=== PATIENT | male | born 1955 | race Caucasian/White ===

== ENCOUNTER 2023-01-04 08:00 | Outpatient (CLI) | payer MEDICARE, SELFPAY ==
--- NOTE | ~2023-01-04 | US_ITS ---
EXAMINATION:US venous doppler LE BI INDICATION:Left leg pain TECHNIQUE: Multiple grayscale, color flow and Doppler images of the right and left lower extremity de ep venous systems were obtained and reviewed. COMPARISON:No prior studies for comparison. FINDINGS: The common femoral, superficial femoral and popliteal veins demonstrate normal respiratory variation, augmentation and compressibility. Color flow is also seen within the posterior tibial, pe roneal, greater saphenous and profunda veins. IMPRESSION: 1: No lower extremity deep venous thrombosis. Reviewed, dictated and finalized at location L. ISE WINDER
--- NOTE | ~2023-01-04 | US_ITS ---
EXAMINATION: US art doppler w press LE DATE: 01/04/2023 10:08 CHIP APPLYING MACHINE TENDER INDICATION: Left leg pain. TECHNIQUE: Segmental pressures and plethysmographic and Doppler waveforms of the brachial and lower e xtremity arteries were obtained. COMPARISON: None. FINDINGS: Right and left brachial artery pressures of 127 mm Hg and 121 mm Hg, respectively, are concordant (no rmal difference <= 30 mmHg). The right high-thigh pressure index is 1.13 The right ankle-brachial index (HEBER) is 1.24. The right g reat toe-brachial index (TBI) is 0.5 (normal >= 0.60). The right lower extremity segmental pressure g radients are normal (normal gradients <= 20-30 mmHg between adjacent levels on the same leg or the sa me levels on the two legs). Arterial Doppler waveforms are biphasic and triphasic.. The left high-thigh pressure index is 1.18. The left HEBER is 1.16. The left TBI is 0.65. The left lowe r extremity segmental pressure gradients are normal. Arterial Doppler waveforms are biphasic. IMPRESSION: 1. Normal right ankle-brachial index. Mildly decreased right toe brachial index consistent with perip heral arterial disease. 2: Normal left lower extremity arterial Doppler. Reviewed, dictated and finalized at location L. APPLYING MACHINE TENDER IMPRESSION: 1. Normal right ankle-brachial index. Mildly decreased right toe brachial index consistent with peripheral arterial disease. 2: Normal left lower extremity arterial Doppler.
== END 2023-01-04 08:01 | disposition home or self-care (01) ==
PROVIDERS: PCP Family Medicine; Visit Provider Nurse Practitioner Family
DX: I73.9 Peripheral vascular disease, unspecified (principal); M79.605 Pain in left leg
CPT/HCPCS: 93923; 93970

== ENCOUNTER 2023-02-20 09:32 | Outpatient (CLI) | payer MEDICARE, SELFPAY ==
[2023-02-20 10:08] LABS: Basophils Percent Auto 0.5 % (0.2-1.2); Eosinophils Absolute Auto 0.1 K/mm3 (0-0.3); Eosinophils Percent Auto 1.8 % (0-4.4); Hematocrit 48.3 % (42.0-52.0); Hemoglobin 16.2 g/dL (14.0-18.0); Immature Granulocyte Absolute 0.01 K/mm3 (0.00-0.031); Immature Granulocyte Percent A 0.3 % (0-0.5); Lymphocytes Percent Auto 17.9 % (18.3-44.2); Mean Corpuscular HGB Conc 33.5 g/dl (32-36); Mean Corpuscular Hemoglobin 31.8 pg (26-34); Mean Corpuscular Volume 94.7 fl (80-100); Mean Platelet Volume 10.1 fl (7.4-10.4); Monocytes Absolute Auto 0.3 K/mm3 (0.1-0.6); Monocytes Percent Auto 8.2 % (2.6-8.5); Neutrophils Absolute Auto 2.8 K/mm3 (1.3-6.7); Neutrophils Percent Auto 71.3 % (45.5-73.1); Platelet Count Result 174 k/mm3 (150-375); Red Cell Distribution Width 12.8 % (11.5-14.5); White Blood Count 3.9 K/mm3 (4.5-10.0)
[2023-02-20 10:33] LABS: Alanine Aminotransferase 27 U/L (6-50); Albumin Level 4.3 g/dL (3.5-5.1); Alkaline Phosphatase 56 U/L (38-126); Anion Gap 5 mmol/L (8-16); Aspartate Amino Transferase 25 U/L (17-59); Blood Urea Nitrogen 16 mg/dL (9-20); Calcium 9.2 mg/dL (8.4-10.2); Carbon Dioxide 28 mmol/L (22-30); Chloride 104 mmol/L (98-107); Estimated Glomerular Filt Rate > 60; Glucose 98 mg/dL (65-110); Potassium 4.5 mmol/L (3.4-5.0); Sodium 137 mmol/L (137-145)
[2023-02-20 10:55] LABS: Hemoglobin A1C 5.3 % (<5.7)
== END 2023-02-20 09:33 | disposition home or self-care (01) ==
LOC: ANHLAB 09:36
PROVIDERS: PCP Family Medicine; Visit Provider Internal Medicine
DX: I48.0 Paroxysmal atrial fibrillation (principal); R79.89 Other specified abnormal findings of blood chemistry
CPT/HCPCS: 36415; 80053; 83036; 84443; 85025

== ENCOUNTER 2023-06-11 12:16 | Emergency (ER) | payer MEDICARE, SELFPAY ==
[2023-06-11 12:20] VITALS: BP 141/74; PULSE 84; RESP 16; TEMP 36.8; O2SAT 97
[2023-06-11] MEDS: OXYMETAZOLINE HCL 0.05% NAS 15 ML BTL (*BKC) 1 SPRAY NASAL (13:43)
[2023-06-11 13:45] VITALS: BP 143/78; PULSE 71; RESP 14; O2SAT 99
--- NOTE | 2023-06-11 14:01 | ED.EPISTAXIS ---
HPI - Epistaxis General Chief complaint: Epistaxis Stated complaint: NOSEBLEED, ON BLOOD THINNERS Time Seen by Provider: 06/11/23 13:19 History of Present Illness HPI Narrative: Patient is a 67-year-old male who presents ER with epistaxis. Had some yesterday lasted for short amount of time but then today began bleeding out of his right nostril and then started coming on the left side. He tried applying pressure but would not stop. He did not take his morning Eliquis due to the bleeding and came here. It started right after taking off his CPAP which she does have humidified air going through. He reports history of recurrent epistaxis in the past but never 1 that persisted like this. Currently patient has a clamp on his nose and is not bleeding Related Data Allergies Allergy/AdvReac Type Severity Reaction Status Date / Time No Known Allergies Allergy Mild Verified 06/11/23 12:17 Review of Systems ENT: Reports epistaxis, Denies nasal congestion and Denies sore throat Cardiovascular: Cardiovascular: Denies chest pain, Denies rapid heart rate and Denies radiating jaw, neck or arm pain Respiratory: Respiratory: Denies cough and Denies dyspnea PMFSH Past Medical History Medical History Abnormal WBC count Bilateral impacted cerumen BMI 24.0-24.9, adult Dietary counseling and surveillance (10/25/15) Elevated bilirubin Elevated cholesterol Elevated glucose Elevated testosterone level Encounter for screening for malignant neoplasm of prostate Gastrointestinal hemorrhage, unspecified H/O nonmelanoma skin cancer Insomnia, unspecified Mixed hyperlipidemia Obstructive sleep apnea (adult) (pediatric) Screening for thyroid disorder Urinary hesitancy Surgical History Surgical History H/O colonoscopy Family History Family History Grandparent Cerebrovascular accident Diabetes mellitus Mother Family history of diabetes mellitus in first degree relative Family history of coronary artery disease Diabetes mellitus Father Family history of coronary artery disease Skin cancer History of quadruple bypass Sibling Prescription drug abuse Skin cancer Sibling Carcinoma of colon Heart disease Lung cancer Other Hypertension Social History Social History Smoking status: Former smoker Tobacco type: cigarettes Second hand tobacco smoke exposure: Yes Smoking end date: 05/11/98 Alcohol intake: former Substance use: never Substance use type: does not use Lack of Transportation: No Lack of Food: Never True Current Housing: I Have Housing Concerned About Future Housing: No Difficulty Paying Gas/Electric Bills: No Difficulty Paying for Meds: No Currently Unemployed: No Education: Trade/Vocational Certificate Difficulty w/ Childcare or Family Care: No Living arrangements: alone Occupation/Education: retired 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 HEAD: Normocephalic, atraumatic. ENT: Mucous membranes moist. Stigmata of bleeding right naris with clot at Kiesselbach's plexus. NECK: Supple. CHEST: Clear to auscultation. No respiratory distress. HEART: Regular rate and rhythm. Normal peripheral pulses. EXTREMITIES: Normal range of motion. No edema. NEURO: Alert and oriented x3. PSYCH: Normal mood and affect. Course Course Emergency Course: Oxymetazoline applied. No additional bleeding. Recommend follow-up with ENT and gave bleeding precautions and also discussed ways to prevent additional bleeding. Vital Signs Vital signs
== END 2023-06-11 14:45 | disposition home or self-care (01) ==
PROVIDERS: Emergency Provider Emergency Medicine; PCP Family Medicine
DX: R04.0 Epistaxis (principal); E78.2 Mixed hyperlipidemia; G47.33 Obstructive sleep apnea (adult) (pediatric); Z85.828 Personal history of other malignant neoplasm of skin; Z87.891 Personal history of nicotine dependence
CPT/HCPCS: 99283; A9270

== ENCOUNTER 2023-06-25 14:22 | Outpatient (CLI) | payer MEDICARE, SELFPAY ==
--- NOTE | ~2023-06-25 | CT_ITS ---
EXAMINATION: CT sinus wo con DATE: 06/25/2023 15:00 INDICATION: Epistaxis. TECHNIQUE: Computed tomography (CT) of the paranasal sinuses was performed without intravenous contra st. Iterative reconstruction technique was employed. The dose-length product was 329.94 mGy-cm. COMPARISON: None FINDINGS: There is mild mucosal thickening in the frontal recesses. There is mucosal thickening in th e bilateral ethmoid sinuses, worst in the right anterior ethmoid sinuses. There is near complete opac ification of right maxillary sinus. There is mild mucosal thickening in left maxillary sinus. The sph enoid sinuses are clear. The nasal septum is at the midline. The right ostiomeatal unit is occluded a t the hiatus semilunaris and infundibulum. Left ostiomeatal unit is patent. There is cerumen in right external auditory canal. IMPRESSION: 1. Mucosal thickening in the paranasal sinuses with occlusion of right ostiomeatal unit. Reviewed, dictated and finalized at location A. IMPRESSION: 1. Mucosal thickening in the paranasal sinuses with occlusion of right ostiomea nikhil unit.
== END 2023-06-25 14:23 | disposition home or self-care (01) ==
PROVIDERS: PCP Family Medicine; Visit Provider Family Medicine
DX: R04.0 Epistaxis (principal)
CPT/HCPCS: 70486

== ENCOUNTER 2024-03-11 12:27 | Outpatient (CLI) | payer MEDICARE, SELFPAY ==
--- NOTE | ~2024-03-11 | CT_ITS ---
CT Scan of the Chest without Contrast: Clinical Indication: Lung cancer screening, personal history of nicotine dependence Technique: Contiguous sections were acquired throughout the chest without intravenous contrast. Dose reduction technique was used on this scan by utilizing automated exposure control and iterative recon struction technique. The dose-length product (DLP) was 129.65 mGy-cm. Findings: There is no evidence of any significant mediastinal, hilar or axillary lymphadenopathy. The mediastin al soft tissues appear normal. There is no evidence of pleural or pericardial effusion. 4 mm right middle lobe pulmonary nodule present (axial image 83). Images through the upper abdomen reveal no abnormalities. Impression: Lung RADS 2: Benign appearance. 12 month follow-up screening CT advised. Reviewed, dictated and finalized at location . Impression: Lung RADS 2: Benign appearance. 12 month follow-up screening CT advised.
== END 2024-03-11 12:28 | disposition home or self-care (01) ==
PROVIDERS: PCP Family Medicine; Visit Provider Family Medicine
DX: Z12.2 Encounter for screening for malignant neoplasm of respiratory organs (principal); Z87.891 Personal history of nicotine dependence
CPT/HCPCS: 71271

== ENCOUNTER 2024-03-25 02:16 | Day surgery (SDC) | payer MEDICARE, SELFPAY ==
[2024-03-10 09:07] VITALS: BMI 24.4
[2024-03-25 11:04] VITALS: BP 138/72; PULSE 80; RESP 20; TEMP 36.2; O2SAT 100; BMI 23.2
[2024-03-25] MEDS: LACTATED RINGERS 1,000 ML 150 ML IV CONT (11:06)
--- NOTE | 2024-03-25 11:49 | WPDANESEPPF ---
Anes - Initial Pre Proc Eval Procedure: Operation Date: 03/25/24 11:30 Proposed Procedures p Screening Colonoscopy - Chester Jaramillo DO Date/Time: 03/25/24 11:49 Surgeon: Chester Jaramillo DO Pre Op Diagnosis: Screening for malignant neoplasm of colon Patient Data Age: 68 Gender: M Height: 1.85 m Weight: 80 kg Last Vital Signs Temp 97.2 F L 03/25/24 11:04 Pulse 80 03/25/24 11:04 Resp 20 03/25/24 11:04 BP 138/72 03/25/24 11:04 Pulse Ox 100 03/25/24 11:04 O2 Del Method Room Air 03/25/24 11:04 Allergies Allergy/AdvReac Type Severity Reaction Status Date / Time No Known Allergies Allergy Mild Verified 03/25/24 11:00 Home Medications Medication Instructions Recorded Confirmed Type sildenafil 25 mg tablet 25 mg PO DAILY PRN sexual activity 01/09/24 03/25/24 Rx #30 tabs clonazepam 1 mg tablet 1 mg PO DAILY #60 tabs 03/11/24 03/25/24 Rx Patient hx anesthesia problems: none Family hx anesthesia problems: none Results Review: All pre-operative results and documents have been reviewed as part of the pre-operative evaluation. [facility] Past Medical History Medical History (Updated 02/29/24 @ 10:59 by Crescencio Araiza MD) Abnormal WBC count Bilateral impacted cerumen BMI 24.0-24.9, adult Dietary counseling and surveillance (10/25/15) Elevated bilirubin Elevated cholesterol Elevated glucose Elevated testosterone level Encounter for screening for malignant neoplasm of prostate Former smoker Gastrointestinal hemorrhage, unspecified H/O nonmelanoma skin cancer Insomnia, unspecified Mixed hyperlipidemia Obstructive sleep apnea (adult) (pediatric) Screening for thyroid disorder Urinary hesitancy Surgical History Surgical History H/O cardiac radiofrequency ablation H/O colonoscopy Family History Family History Grandparent Cerebrovascular accident Diabetes mellitus Mother Family history of diabetes mellitus in first degree relative Family history of coronary artery disease Diabetes mellitus Father Family history of coronary artery disease Skin cancer History of quadruple bypass Sibling Prescription drug abuse Skin cancer Sibling Carcinoma of colon Heart disease Lung cancer Other Hypertension Social History Social History (Updated 03/11/24 @ 17:42 by Crescencio Araiza MD) Smoking packs per day: 1 Smoking cigarettes per day: 20.0 Years smoked: 20 Smoking pack-years: 20.00 Smoking status: Former smoker Tobacco type: cigarettes Second hand tobacco smoke exposure: Yes Smoking end date: 05/11/98 Alcohol intake: former Substance use: never Substance use type: does not use Do You Feel Safe in your Home?: Yes Lack of Transportation: No Lack of Food: Never True Current Housing: I Have Housing Concerned About Future Housing: No Difficulty Paying Gas/Electric Bills: No Difficulty Paying for Meds: No Currently Unemployed: No Education: Trade/Vocational Certificate Difficulty w/ Childcare or Family Care: No Living arrangements: alone Occupation/Education: retired 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 Informed Consent: The patient's anes
--- NOTE | 2024-03-25 12:47 | PM.IMHP ---
H&P: HPI History of Present Illness Date/Time: 03/25/24 12:47 Chief Complaint: Family history of colon cancer Narrative: this is a 68-year-old man who presents for colonoscopy. His last colonoscopy was about 5 years ago. He has a family history of colon cancer. His last colonoscopy did show 1 small polyp he thinks. He denies any hematochezia or melena. Review of Systems Review of Systems: All systems reviewed & are unremarkable except as noted in HPI and below Constitutional: Constitutional: Denies chills, Denies fever(s), Denies headache(s) and Denies weight loss Eyes: Eyes: Denies change in vision ENT: Denies dizziness, Denies headache(s), Denies neck mass and Denies throat swelling Cardiovascular: Cardiovascular: Denies chest pain, Denies lightheadedness and Denies dyspnea Respiratory: Respiratory: Denies cough, Denies dyspnea and Denies wheezing Gastrointestinal: Gastrointestinal: Denies abdominal pain, Denies change in bowel habits, Denies nausea and Denies vomiting Genitourinary: Genitourinary: Denies hematuria and Denies dysuria Musculoskeletal: Musculoskeletal: Reports as per HPI Integumentary/Breasts: Skin/Breast: Reports as per HPI Neurologic: Denies dizziness and Denies headache(s) Allergic/Immunologic: Allergic/Immunologic: Denies throat swelling and Denies wheezing [facility] Past Medical History Medical History (Updated 03/25/24 @ 12:48 by Chester Jaramillo DO) Abnormal WBC count Bilateral impacted cerumen BMI 24.0-24.9, adult Dietary counseling and surveillance (10/25/15) Elevated bilirubin Elevated cholesterol Elevated glucose Elevated testosterone level Encounter for screening for malignant neoplasm of prostate Former smoker Gastrointestinal hemorrhage, unspecified H/O nonmelanoma skin cancer Insomnia, unspecified Mixed hyperlipidemia Obstructive sleep apnea (adult) (pediatric) Screening for thyroid disorder Urinary hesitancy Surgical History Surgical History H/O cardiac radiofrequency ablation H/O colonoscopy Family History Family History Grandparent Cerebrovascular accident Diabetes mellitus Mother Family history of diabetes mellitus in first degree relative Family history of coronary artery disease Diabetes mellitus Father Family history of coronary artery disease Skin cancer History of quadruple bypass Sibling Prescription drug abuse Skin cancer Sibling Carcinoma of colon Heart disease Lung cancer Other Hypertension Social History Social History (Updated 03/11/24 @ 17:42 by Crescencio Araiza MD) Smoking packs per day: 1 Smoking cigarettes per day: 20.0 Years smoked: 20 Smoking pack-years: 20.00 Smoking status: Former smoker Tobacco type: cigarettes Second hand tobacco smoke exposure: Yes Smoking end date: 05/11/98 Alcohol intake: former Substance use: never Substance use type: does not use Do You Feel Safe in your Home?: Yes Lack of Transportation: No Lack of Food: Never True Current Housing: I Have Housing Concerned About Future Housing: No Difficulty Paying Gas/Electric Bills: No Difficulty Paying for Meds: No Currently Unemployed: No Education: Trade/Vocational Certificate Difficulty w/ Childcare or Family Care: No Living arrangements: alone Occupation/Education: retired 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
[2024-03-25 13:23] VITALS: BP 111/69; PULSE 74; RESP 21; O2SAT 100
[2024-03-25 13:30] VITALS: BP 126/84; PULSE 70; RESP 24; O2SAT 100
[2024-03-25 13:40] VITALS: BP 143/84; PULSE 69; RESP 20; O2SAT 100
== END 2024-03-25 13:51 | disposition home or self-care (01) ==
PROVIDERS: PCP Family Medicine; Visit Provider Surgery
PROC: 0DJD8ZZ Inspection of Lower Intestinal Tract, Via Natural or Artificial Opening Endoscopic (ICD-10-PCS; CPT 45378; principal; 2024-03-25 11:30)
DX: Z12.11 Encounter for screening for malignant neoplasm of colon (principal); Z80.0 Family history of malignant neoplasm of digestive organs; Z87.891 Personal history of nicotine dependence
CPT/HCPCS: G0105; J2704; J7120

== ENCOUNTER 2024-04-15 10:05 | Outpatient (CLI) | payer MEDICARE, SELFPAY ==
--- NOTE | ~2024-04-15 | XR_ITS ---
EXAMINATION: XR abdomen/kub 1V DATE: 04/15/2024 10:20 INDICATION: Unspecified abdominal pain. TECHNIQUE: A supine view of the abdomen on 2 radiographs was obtained. COMPARISON: CT abdomen and pelvis 04/15/2024 FINDINGS: There are no dilated loops of bowel. There is a small volume of stool in the colon. There a re phleboliths in the pelvis. IMPRESSION: 1. No visible urolithiasis. Reviewed, dictated and finalized at location A. IMPRESSION: 1. No visible urolithiasis.
--- NOTE | ~2024-04-15 | CT_ITS ---
Non-contrast CT scan of the Abdomen and Pelvis Clinical indication: Abdominal pain Technique: 2.5 mm axial scans were obtained through the abdomen and pelvis without intravenous or or al contrast. Dose reduction technique was used on this scan by utilizing automated exposure control a nd iterative reconstruction technique. The dose-length product (DLP) was 617.17 mGy-cm. Findings: Images through the lung bases reveal no abnormalities. There is a 6 x 4 mm ovoid stone at the proximal right ureter (axial image 62), mild to moderate right hydroureteronephrosis to this level. There is mild left hydroureteronephrosis, but no left ureteral stones seen on the current exam. There is a 7 mm round nonobstructing left renal stone. The liver, spleen, pancreas, gallbladder, and adrenals appear normal. There are atherosclerotic calci fications of the aorta. There is no evidence of bowel obstruction. Images through the pelvis were performed. There is no evidence of ascites or lymphadenopathy. 3 mm ur inary bladder stone present. Prostate gland enlarged. Impression: 6 x 4 mm proximal right ureteral stone with mild to moderate hydroureteronephrosis to this level. Mild left hydroureteronephrosis with no left ureteral stones seen currently. There is a 3 mm urinary bladder stone, possibly recently passed from the left side. Correlate clinically. Additional 7 mm nonobstructing left renal stone. Reviewed, dictated and finalized at [facility]. Impression: 6 x 4 mm proximal right ureteral stone with mild to moderate hydroureteronephro sis to this level. Mild left hydroureteronephrosis with no left ureteral stones seen currently. Th ere is a 3 mm urinary bladder stone, possibly recently passed from the left jesús e. Correlate clinically. Additional 7 mm nonobstructing left renal stone.
== END 2024-04-15 10:06 ==
LOC: MICIMG 10:06
PROVIDERS: PCP Family Medicine; Visit Provider Nurse Practitioner Adult Health
DX: N13.2 Hydronephrosis with renal and ureteral calculous obstruction (principal)
CPT/HCPCS: 74018; 74176

== ENCOUNTER 2025-02-11 09:58 | Outpatient (CLI) | payer MEDICARE, SELFPAY ==
--- NOTE | ~2025-02-11 | XR_ITS ---
Left foot Technique: AP, oblique, and lateral views were obtained. Clinical History: Anesthesia of skin Findings: No acute fracture or dislocation is seen. Osseous alignment is anatomic. Joint spaces are p reserved without erosive or degenerative change. Soft tissues are unremarkable. Impression: Unremarkable left foot radiographs. Reviewed, dictated and finalized at location . Impression: Unremarkable left foot radiographs.
--- NOTE | ~2025-02-11 | XR_ITS ---
Cervical Spine: AP, lateral, open-mouth views Clinical History: Pain Findings: The normal lordotic curve is maintained. No fracture or subluxation seen. There is advanced degenerative disc narrowing at C6-C7. There is moderate facet arthropathy, particularly at the upper to mid cervical spine.. Pre-vertebral soft tissues are unremarkable. Impression: Degenerative spondylosis, moderate in degree, as detailed above. Reviewed, dictated and finalized at location M. Impression: Degenerative spondylosis, moderate in degree, as detailed above.
--- OUTSIDE RECORDS SUMMARY | 2025-02-11 11:34 | XMS_ITS | Clinical Summary ---
Author Organization [facility] Address [address] [place] [address] Care Team Providers Care Telephone Operator Chief Name Role Phone Crescencio Araiza MD Primary Care Provider [phone] Source Comments [facility],non-owned Affiliates and Associated Physician Practices is amultiple site organization consisting of ambulatory clinics and hospital sitesin [place], [place], [place] and [place]. This disclosure is being madepursuant to the Care Everywhere program and may not contain all information available regarding this patient. Last updated 18.[facility] [employer] Social History Tobacco Use Types Packs/Day Years Used Date Smoking Tobacco: Never Assessed Sex and Gender Information Value Date Recorded Sex Assigned at Not on file Gender Identity Not on file Sexual Orientation Not on file Plan of Treatment Health Maintenance Due Date Last Done Comments COLOGUARD (AGES 45-75) - COL ON CA SCREENING 1957 COLON MONITORING 1957 COLONOSCOPY - COLON CA SCREENING 1957 CT COLONOGRAPHY - COLON CA SCREENING 1957 Colorectal Cancer Screening 1957 FIT - COLON CA SCREENING 1957 FLEX SIG - COLON CA SCREENING 1957 LIPID TESTING 1957 HEPATITIS C SCREENING 10/23/1975 DTAP/TDAP/TD VACCINES (1 - Tdap) 1976 PNEUMOCOCCAL VACCINE 50+ (1 of 1 - PCV) 2007 ZOSTER VACCINE (1 of 2) 2007 COVID-19 VACCINE ( - 2023-2 5 season) 2024 INFLUENZA VACCINE (#1) 2024 DEPRESSION SCREENING 11/12/2024 Respiratory Syncytial Virus (RSV) Vaccine Pt: or over 60 yrs (1 - 1-dose 75+ series) 2032 HEPATITIS B VACCINE Aged Out No longe r eligible based on patient's age to complete this topic HIB VACCINE Aged Out No longer eligi ble based on patient's age to complete this topic HPV VACCINE Aged Out No longer eligi ble based on patient's age to complete this topic MENINGOCOCCAL (Group B) VACC INE SHARED DECISION-MAKING Aged Out No longer eligibl e based on patient's age to complete this topic MENINGOCOCCAL GROUPS A/C/Y/W VACCINE Aged Out No longer eligible b ased on patient's age to complete this topic Care Teams Telephone Operator Chief Relationship Specialty Start Date End Date Crescencio Araiza MD [address] [place] [address] PCP - General 04/10/19
--- OUTSIDE RECORDS SUMMARY | 2025-02-11 11:34 | XMS_ITS | Encounter Summary ---
Author Organization [facility] Address [address] [facility] [place] [address] Care Team Providers Care Retail Sales Associate Name Role Phone Crescencio Araiza MD Primary Care Provider [phone] Encounter Details Date Type Department Care Team (Late st Contact Info) Description 12/03/2019 Lab Requisition [facility] DermPath Lab [address] [facility] [place] [phone] Estela Urbina MD [address] [facility] [address] [place] [address] Social History Tobacco Use Types Packs/Day Years Used Date Smoking Tobacco: Never Assessed Sex and Gender Information Value Date Recorded Sex Assigned at Not on file Gender Identity Not on file Sexual Orientation Not on file documented as of this encounter Plan of Treatment Not on file documented as of this encounter Procedures Procedure Name Priority Date/Time Associated Diagnosis Comments DERMATOPATHOLOGY Routine 12/02/2019 12:0 0 AM MUD ANALYSIS WELL LOGGING OPERATOR documented in this encounter Results * DERMATOPATHOLOGY (12/02/2019 12:00 AM MUD ANALYSIS WELL LOGGING OPERATOR) Case Report Dermatopathology Report Case: [id number] Authorizing Provider: Estela Urbina MD Collected: 12/02/2019 12:00 AM Ordering Location: [facility] DermPath Lab Received: 12/03/2019 07:12 AM Pathologist: Sharifa Luna MD Specimen: Skin, left neck 0 4:11 PM MUD ANALYSIS WELL LOGGING OPERATOR DERMATOPATHOLOGY LABORATORY Final Diagnosis Specimen A. 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 0 4:11 PM [facility] DERMATOPATHOLOGY LABORATORY Gross Description Specimen A: Received is one formalin filled container labeled with the patient's name and designated left neck. The specimen consists of a non-oriented ellipse of skin measuring [id number]. The epidermal surface consists of a centrally located 7x5mm previous biopsy site. The margin is inked green. The 12 o'clock and 6 o'clock tips are submitted in cassette 1. The remainder of the ellipse is serially sectioned and submitted in cassettes 2-4. Jar 0. 0 4:11 PM [facility] DERMATOPATHOLOGY LABORATORY Microscopic Description Specimen A. SKIN, left neck: The epidermis shows parakeratosis, full thickness disorderly maturation of keratinocytes, mitoses at different levels, and dyskeratotic cells. This lesion is not present at the margin of the specimen. There are fibroblasts and collagen bundles oriented parallel to the skin surface with elongated blood vessels, some of which are oriented perpendicular to the skin surface. 0 4:11 PM [facility] DERMATOPATHOLOGY LABORATORY Disclaimer An external and internal positive and negative controls are appropriate for the histochemical, immunohistochemical and immunofluorescence stain(s) in this case (if any), except where stated explicitly. The performance characteristics of the stain(s) cited in this report were developed and its performance characteristic determined by the Dermatopathology Laboratory at [facility], directed by Dr. Eliza Herbert. These tests need not be, and therefore are not, approved by the [place] Food and Drug Administration. The tests are used for clinical purposes. Billing Codes Specimen Charges Stain Charges 90764 1 0 4:11 PM [facility] DERMATOPATHOLOGY LABORATORY Embedded Images 0 4:11 PM [facility] DERMATOPATHOLOGY LABORATORY Pathology/Cytolog y TISSUE SPECIMEN FROM SKIN / Unknown 12/02/2019 12/03/2019 7:12 AM [facility] Estela Urbina MD LAB - PATHOLOGY/CYT OLOGY ORDERABLES DERMATOPATHOLOGY LABORATORY [facility] - Department of Dermatology [address] [place] [address] [address] [phone] documented in this encounter Visit Diagnoses Not on filedocumented in this encounter Care Teams Retail Sales Associate Relationship Specialty Start Date End Date Crescenico Araiza MD [address] [place] [address] PCP - General 04/10/19 documented as of this encounter
--- OUTSIDE RECORDS SUMMARY | 2025-02-11 11:34 | XMS_ITS | Encounter Summary ---
Author Organization [facility] Address [address] [facility] [place] [address] Care Team Providers Care Residential Case Manager Name Role Phone Crescencio Araiza MD Primary Care Provider Encounter Details Date Type Department Care Team (Late st Contact Info) Description 09/10/2019 Lab Requisition [facility] DermPath Lab [address] [facility] [facility] [place] [address] Estela Urbina MD [address] [facility] [address] [place] [address] Social History Tobacco Use Types Packs/Day Years Used Date Smoking Tobacco: Never Assessed Sex and Gender Information Value Date Recorded Sex Assigned at Not on file Gender Identity Not on file Sexual Orientation Not on file documented as of this encounter Plan of Treatment Not on file documented as of this encounter Procedures Procedure Name Priority Date/Time Associated Diagnosis Comments DERMATOPATHOLOGY Routine 09/09/2019 12:0 0 AM CDT documented in this encounter Results * DERMATOPATHOLOGY (09/09/2019 12:00 AM CDT) Case Report Dermatopathology Report Case: [id number] Authorizing Provider: Estela Urbina MD Collected: 09/09/2019 12:00 AM Ordering Location: [facility] DermPath Lab Received: 09/10/2019 06:52 AM Pathologist: Karen Herbert MD Specimen: Skin, left neck 9 2:02 PM CDT DERMATOPATHOLOGY LABORATORY Final Diagnosis Specimen A. 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 2:02 PM CDT DERMATOPATHOLOGY LABORATORY Gross Description Specimen A: Received is one formalin filled container labeled with the patient's name and designated left neck. The specimen consists of a shave measuring [id number]. Jar 0. 2:02 PM CDT DERMATOPATHOLOGY LABORATORY Microscopic Description Specimen A. SKIN, left neck: The epidermis shows parakeratosis, full thickness disorderly maturation of keratinocytes, mitoses at different levels, and dyskeratotic cells. 2:02 PM CDT DERMATOPATHOLOGY LABORATORY Disclaimer An external and internal positive and negative controls are appropriate for the histochemical, immunohistochemical and immunofluorescence stain(s) in this case (if any), except where stated explicitly. The performance characteristics of the stain(s) cited in this report were developed and its performance characteristic determined by the Dermatopathology Laboratory at [facility], directed by Dr. Eliza Herbert. These tests need not be, and therefore are not, approved by the [place] Food and Drug Administration. The tests are used for clinical purposes. Billing Codes Specimen Charges Stain Charges 04832 1 2:02 PM CDT DERMATOPATHOLOGY LABORATORY Embedded Images 2:02 PM CDT DERMATOPATHOLOGY LABORATORY Pathology/Cytolog y TISSUE SPECIMEN FROM SKIN / Unknown 09/09/2019 09/10/2019 6:52 AM CDT Estela Urbina MD LAB - PATHOLOGY/CYT OLOGY ORDERABLES DERMATOPATHOLOGY LABORATORY [facility] - Department of Dermatology [address] [place] [address], 5th [place] [address], [facility] [phone] documented in this encounter Visit Diagnoses Not on filedocumented in this encounter Care Teams Residential Case Manager Relationship Specialty Start Date End Date Crescencio Araiza MD [address] [place] [address] PCP - General 04/10/19 documented as of this encounter
--- OUTSIDE RECORDS SUMMARY | 2025-02-11 11:34 | XMS_ITS | Encounter Summary ---
Author Organization [facility] Address [address] [place] [address] Phone Care Team Providers Care Maintenance Plumber Name Role Phone Crescencio Araiza MD Primary Care Provider [phone] Encounter Details Date Type Department Care Team (Late st Contact Info) Description 10/02/2023 Telephone [facility] Cardiology [address] [facility] Advanced Medicine 8th [place] [address] [place] [address] Humberto Lopez MD [address] [facility] [address] [place], [place] [phone] Social History Tobacco Use Types Packs/Day Years Used Date Smoking Tobacco: Former Cigarettes 1 989 - 1998 Passive Smoke Exposure: Past Smokeless Tobacco: Never AUDIT-C Answer Date Recorded Q1: How often do you have a drink containing alcohol? Never 07/13/2023 Q2: How many drinks containi ng alcohol do you have on a typical day when you are drinking? Patient does not drink Q3: How often do you have si x or more drinks on one occasion? Never 07/13/2023 Personal Safety Answer Date Recorded Have you ever been in or are you currently in a harmful physical or emotional relationship or is someone making you feel afraid or unsafe? Denies 07/13/2023 Sex and Gender Information Value Date Recorded Sex Assigned at Not on file Legal Sex Male 5:12 AM COMMERCIAL ATTACHE Gender Identity Not on file Sexual Orientation Not on file documented as of this encounter Plan of Treatment Not on file documented as of this encounter Visit Diagnoses Not on filedocumented in this encounter Care Teams Maintenance Plumber Relationship Specialty Start Date End Date Crescencio Araiza MD PCP - General Family Medicine 01/11/23 documented as of this encounter
--- OUTSIDE RECORDS SUMMARY | 2025-02-11 11:34 | XMS_ITS | Encounter Summary ---
Author Organization [facility] Address [address] [facility] [place] [address] Care Team Providers Care Slip Maker Name Role Phone Crescencio Araiza MD Primary Care Provider [phone] Encounter Details Date Type Department Care Team (Late st Contact Info) Description 09/15/2020 Lab Requisition [facility] DermPath Lab [address] [facility] [place] [address] Estela Urbina MD [address] [facility] 3 [place] [address] Social History Tobacco Use Types Packs/Day Years Used Date Smoking Tobacco: Never Assessed Sex and Gender Information Value Date Recorded Sex Assigned at Not on file Gender Identity Not on file Sexual Orientation Not on file documented as of this encounter Plan of Treatment Not on file documented as of this encounter Procedures Procedure Name Priority Date/Time Associated Diagnosis Comments DERMATOPATHOLOGY Routine 09/14/2020 12:0 0 AM CP BLEACHER OPERATOR documented in this encounter Results * DERMATOPATHOLOGY (09/14/2020 12:00 AM CP BLEACHER OPERATOR) Case Report Dermatopathology Report Case: [id number] Authorizing Provider: Estela Urbina MD Collected: 09/14/2020 12:00 AM Ordering Location: [facility] DermPath Lab Received: 09/15/2020 06:56 AM Pathologist: Karen Herbert MD Specimens: A) - Skin, left forehead B) - Skin, left post ear C) - Skin, right chest 0 12:19 PM CP BLEACHER OPERATOR DERMATOPATHOLOGY LABORATORY Final Diagnosis Specimen A. SKIN, left forehead: ACTINIC KERATOSIS (L57.0) SEBORRHEIC KERATOSIS, RETICULATED (ADENOID) TYPE (L82.1) Specimen B. SKIN, left post ear: BASAL CELL CARCINOMA, NODULAR TYPE (C44.219) Specimen C. SKIN, right chest: ACTINIC KERATOSIS, LICHENOID (L57.0) 0 12:19 PM [facility] DERMATOPATHOLOGY LABORATORY Clinical History A-C: Irritated, R/O BCC. 0 12:19 PM [facility] DERMATOPATHOLOGY LABORATORY Gross Description Specimen A: Received is one formalin filled container labeled with the patient's name and designated left forehead. The specimen consists of a shave measuring 7l2k7ya. Jar 0. Specimen B: Received is one formalin filled container labeled with the patient's name and designated left post ear. The specimen consists of a shave measuring 4w4s9rp. Jar 0. Specimen C: Received is one formalin filled container labeled with the patient's name and designated right chest. The specimen consists of a shave measuring 6w0v7hv. Jar 0. 0 12:19 PM [facility] DERMATOPATHOLOGY LABORATORY Microscopic Description Specimen A. SKIN, left forehead: There is focal parakeratosis. The lower half of the epidermis shows disorderly maturation of keratinocytes with nuclear pleomorphism. There is reticulated hyperplasia of the epidermis with overlying delicate hyperorthokeratosis . Hyperpigmentation is present in the basaloid cells. Specimen B. SKIN, left post ear: Within the dermis there are aggregates of basaloid cells with a high nuclear to cytoplasmic ratio and peripheral palisading. Specimen C. SKIN, right chest: There is focal parakeratosis. The lower half of the epidermis shows disorderly maturation of keratinocytes with nuclear pleomorphism. The dermis shows a band-like, chronic inflammatory infiltrate with occasional apoptotic keratinocytes and some basal vacuolar alteration. 0 12:19 PM [facility] DERMATOPATHOLOGY LABORATORY Disclaimer An external and internal positive and negative controls are appropriate for the histochemical, immunohistochemical and immunofluorescence stain(s) in this case (if any), except where stated explicitly. The performance characteristics of the stain(s) cited in this report were developed and its performance characteristic determined by the Dermatopathology Laboratory at [facility], directed by Dr. Eliza Herbert. These tests need not be, and therefore are not, approved by the [place] Food and Drug Administration. The tests are used for clinical purposes. Billing Codes Specimen Charges Stain Charges 41447 29834 84869 1 1 1 0 12:19 PM CP BLEACHER OPERATOR DERMATOPATHOLOGY LABORATORY Embedded Images 0 12:19 PM CP BLEACHER OPERATOR DERMATOPATHOLOGY LABORATORY Pathology/Cytology TISSUE SPECIMEN FROM SKIN / Unknown 09/14/2020 09/15/2020 6:56 AM CP BLEACHER OPERATOR Miscellaneous samples (specimen) TISSUE SPECIMEN FROM SKIN / Unknown 09/14/2020 09/15/2020 6:56 AM CP BLEACHER OPERATOR Miscellaneous samples (specimen) TISSUE SPECIMEN FROM SKIN / Unknown 09/14/2020 09/15/2020 6:56 AM CP BLEACHER OPERATOR Estela Urbina MD LAB - PATHOLOGY/CYT OLOGY ORDERABLES DERMATOPATHOLOGY LABORATORY [facility] - Department of Dermatology [address], [address] [phone] documented in this encounter Visit Diagnoses Not on filedocumented in this encounter Care Teams Slip Maker Relationship Specialty Start Date End Date Crescencio Araiza MD [address] [place] [address] PCP - General 04/10/19 documented as of this encounter
--- OUTSIDE RECORDS SUMMARY | 2025-02-11 11:34 | XMS_ITS | Clinical Summary ---
Author Organization [facility] Address [address], [facility] [address] [place] [address] Phone Care Team Providers Care Supervisor Scrap Preparation Name Role Phone Crescencio Araiza MD Primary Care Provider [phone] Social History Tobacco Use Types Packs/Day Years Used Date Smoking Tobacco: Never Assessed Sex and Gender Information Value Date Recorded Sex Assigned at Not on file Legal Sex Male 9:37 AM CDT Gender Identity Not on file Sexual Orientation Not on file Plan of Treatment Health Maintenance Due Date Last Done Comments Hepatitis C Virus (HCV) Screening 1955 TdaP Immunization 1955 Cologuard 2007 Immunochemical Fecal Occult Blood 2007 Pneumococcal Immunization (5 0+ years) (1 of 1 - PCV) 2007 Zoster Immunization (1 of 2) 2007 PSA Discussion 2012 Colonoscopy 04/03/2024 04/03/2019 Colorectal Cancer Screening 04/03/2024 Influenza Immunization (#1) 2024 SARS-COV-2 Immunization (2023- season) 2024 Respiratory Syncytial Virus (RSV) Immunization (Adult) (1 - 1-dose 75+ series) 2032 04/03/2019 Hepatitis B Immunization Aged Out No longer eligible based on patient's age to complete this topic Meningococcal Immunization (ACWY) Aged Out No longer eligible based on patient's age to complete this topic Rotavirus Immunization Aged Out No lo nger eligible based on patient's age to complete this topic Procedures Procedure Name Priority Date/Time Associated Diagnosis Comments HM COLONOSCOPY Routine 04/03/2019 from Last 3 Months or Most Recently Relevant to Health Maintenance Results * COLONOSCOPY (04/03/2019) Octavio Dirk Schmidt DO PROCEDURE/MINOR SURGICAL ORDERA BLES Final Result from Last 3 Months or Most Recently Relevant to Health Maintenance Insurance [facility] Care Teams Supervisor Scrap Preparation Relationship Specialty Start Date End Date Crescencio Araiza MD [address] [address] PCP - General Family Medicine 04/08/19
--- OUTSIDE RECORDS SUMMARY | 2025-02-11 11:34 | XMS_ITS | Referral Summary ---
Author Organization [facility] [address] Address [address] [place] [address] Care Team Providers Care Science Editor Name Role Phone Crescencio Araiza MD Primary Care Provider [phone] Allergies No known active allergies Medications metoprolol tartrate (LOPRESSOR) 25 mg immediate release tabletIndicatio ns:Atrial Arrhythmia Take 0.5 tablets (12.5 mg total) by mouth daily as needed (A-fib) 3 Active clonazePAM (KlonoPIN) 1 mg tabletIndicatio ns:Anxiety/ sleep Take 1 tablet (1 mg total) by mouth nightly Active mupirocin (BACTROBAN) 2 % ointmentIndicat ions:nose sores Apply 1 Application to each nostril 3 (three) times a day 3 Active fluticasone propionate (FLONASE) 50 mcg/actuation nasal sprayIndication s:Allergic Rhinitis Administer 1 spray into each nostril 2 (two) times a day Active MULTIVITAMIN ORALIndications :Supplement Take 4 capsules by mouth every morning Active ZRMSP-2-MOU-EPA -FISH OIL-COQ10 ORALIndications :supplement Take 2 capsules by mouth every morning Active magnesium oxide (MAG-OX) 500 mg (301.6 mg elemental) tabletIndicatio ns:hypomagnesem ia Take 1 tablet (500 mg total) by mouth every morning Active ascorbic acid (vitamin C) 1,000 mg tabletIndicatio ns:Vitamin C Deficiency Take 1 tablet (1,000 mg total) by mouth every morning Active sildenafiL (VIAGRA) 25 mg tablet TAKE 1 TABLET BY MOUTH ONCE DAILY NEEDED FOR SEXUAL ACTIVITY. TAKE 30 MINUTES TO 4 HOURS BEFORE ACTIVITY. Active prednisoLONE sodium phosphate (INFLAMASE FORTE) 1 % ophthalmic solution 1 drop 4 (four) times a day Active Active Problems Problem Noted Date Diagnosed Date KENDRICK (obstructive sleep apnea) 04/20/2023 Assessment & Plan (07/13/2023 3:46 PM CDT): On Cpap at home, continue here Peripheral vascular disease, unspecified 023 Assessment & Plan (03/28/2023 7:56 AM CDT): Patient following up after obtaining a lower extremity arterial Doppler at his request which shows triphasic waveforms distally and bilaterally. He is continuing to run without any symptoms of claudication. Denies any rest pain. No other concerns. Plan: Follow-up as needed. Assessment & Plan (02/08/2023 4:14 PM CDT): Impression: Patient is an avid runner and denies any symptoms suggestive of claudication, ischemic rest pain or ulcerations. Patient complained of pain to the left thigh and duplex and lower extremity HEBER at an outside facility. He was negative for a DVT. Patient has triphasic waveforms noted to the HEBER report however had an abnormal right great toe brachial index. He denies pain to his feet or discoloration. Patient has palpable distal pulses to bilateral lower extremities. Plan: No concern for arterial disease. Per patient's request, we will have patient follow-up in 2 weeks with a lower extremity arterial Doppler for further evaluation. Paroxysmal atrial fibrillation 02/02/2023 Assessment & Plan (07/14/2023 9:59 AM CDT): S/p ablation - Post procedure monitoring per EP; no complications noted overnight, ok for discharge today - restart AC with Eliquis 5mg BID, next dose this evening, uninterrupted AC for 3 months - start Pantoprazole 40mg daily for next 30 days - monitor on telemetry-- NSR Assessment & Plan (02/08/2023 4:15 PM CDT): Impression: Recently diagnosed with atrial fibrillation in November 2022. He is currently on a 30 day heart monitor. He is not currently on any anticoagulation at this time. Plan: Continue metoprolol as per Cardiology. Lipid screening 02/02/2023 Social History Tobacco Use Types Packs/Day Years Used Date Smoking Tobacco: Former Cigarettes 1 9 - 1998 Passive Smoke Exposure: Past Smokeless Tobacco: Never Tobacco Cessation:Counseling Given: No AUDIT-C Answer Date Recorded Q1: How often [...] on file Legal Sex Male 5:12 AM PUBLIC HEALTH REPRESENTATIVE Gender Identity Not on file Sexual Orientation Not on file Last Filed Vital Signs Vital Sign Reading Time Taken Comments Blood Pressure 130/80 10/29/2024 10:03 AM PUBLIC HEALTH REPRESENTATIVE Pulse 85 10/29/2024 10:03 AM PUBLIC HEALTH REPRESENTATIVE Temperature 36.5 C (97.7 F) 07/14/2023 8:30 AM CDT Respiratory Rate 18 07/14/2023 8:30 AM CDT Oxygen Saturation 98% 10/29/2024 10:03 AM PUBLIC HEALTH REPRESENTATIVE Inhaled Oxygen Concentration - - Weight 86.6 kg (191 lb) 10/29/2024 10:03 AM PUBLIC HEALTH REPRESENTATIVE Height 185.4 cm (6' 1 ) 10/31/2023 2:33 PM PUBLIC HEALTH REPRESENTATIVE Body Mass Index 25.2 10/31/2023 2:33 PM PUBLIC HEALTH REPRESENTATIVE Plan of Treatment Not on file Medical Devices Implanted Type Area Coffee Shop Attendant Device Identifier Shelf Expiration Date Model / Serial / Lot [employer] Vascade Mvp 6-12fr Venous Closure [id number] - [id number] - [id number] Implanted:Qty : 1 on 07/13/2023 by Radha Osorio MD at [facility] Collagen Right: Femoral Vein [employer] 06/16/2025 [id number] 10U / [id number] 10B / [id number] 10B [employer] Vascade Mvp 6-12fr Venous Closure [id number] - [id number] - [id number] Implanted:Qty : 1 on 07/13/2023 by Radha Osorio MD at [facility] Collagen Right: Femoral Vein [employer] 06/16/2025 800-612C- 10U / [id number] 10B / [id number] 10B [employer] Vascade Mvp 6-12fr Venous Closure [id number] - [id number] - [id number] Implanted:Qty : 1 on 07/13/2023 by Radha Osorio MD at [facility] Collagen Left: Femoral Vein [employer] 06/16/2025 [id number] 10U / [id number] 10B / [id number] Insurance [facility] Advance Directives For more information, please contact: [phone] * Full Code (Latest Code Status on File) Date Activated Date Inactivated Comments 07/13/2023 3:18 PM 07/14/2023 2:55 PM Care Teams Science Editor Relationship Specialty Start Date End Date Crescencio Araiza MD PCP - General Family Medicine 01/11/23
--- OUTSIDE RECORDS SUMMARY | 2025-02-11 11:34 | XMS_ITS | Clinical Summary ---
Author Organization [facility] Address [address] [place] [address] Care Team Providers Care Hand Chain Maker Name Role Phone Crescencio Araiza MD Primary Care Provider [phone] Allergies No known active allergies Medications clonazePAM (KlonoPIN) 1 mg tablet Take 1 mg by mouth daily at bedtime. Active Active Problems Problem Noted Date Diagnosed Date Leukopenia 06/28/2017 Encounters Date Type Department Care Team Description 11/25/2024 External Device Data ST[facility] ABSTRACTION Provider, Abstract from Last 3 Months Family History Medical History Relation Name Comments No Known Problems Brother 1 Melanoma Brother 2 No Known Problems Brother 3 Heart Disease Father Melanoma Father Diabetes Mother Heart Disease Mother Colon Cancer Sister 1 Heart Disease Sister 1 Other Sister 2 Relation Name Status Comments Brother 1 Alive Brother 2 Alive Brother 3 Alive Father Alive Mother Sister 1 Alive Sister 2 Alive Social History Tobacco Use Types Packs/Day Years Used Date Smoking Tobacco: Former Cigarettes 1 15 0 06/28/1984 - 06/28/1999 Smokeless Tobacco: Never Alcohol Use Standard Drinks/Week Comments No 0 (1 standard drink = 0.6 oz pur e alcohol) Sex and Gender Information Value Date Recorded Sex Assigned at Not on file Legal Sex Male 12:08 PM CDT Gender Identity Not on file Sexual Orientation Not on file Last Filed Vital Signs Vital Sign Reading Time Taken Comments Blood Pressure 149/88 09/27/2017 3:11 PM MANAGER OF DISASTER RECOVERY Pulse 104 09/27/2017 3:11 PM MANAGER OF DISASTER RECOVERY Temperature 36.4 C (97.5 F) 09/27/2017 3:11 PM MANAGER OF DISASTER RECOVERY Respiratory Rate 18 09/27/2017 3:11 PM MANAGER OF DISASTER RECOVERY Oxygen Saturation - - Inhaled Oxygen Concentration - - Weight 89.8 kg (198 lb) 09/27/2017 3:11 PM MANAGER OF DISASTER RECOVERY Height 185.4 cm (6' 1 ) 09/27/2017 3:11 PM MANAGER OF DISASTER RECOVERY Body Mass Index 26.12 09/27/2017 3:11 PM MANAGER OF DISASTER RECOVERY Plan of Treatment Health Maintenance Due Date Last Done Comments DTAP/TDAP/TD VACCINES (1 - Tdap) 1976 FIT-DNA Q 3 years 2002 FIT/FOBT Q 1 year 2002 Flex Sig/CT Colonography Q 5 years 2002 PNEUMOCOCCAL VACCINE 50+ YEARS (1 of 1 - PCV) 10/27/20 07 ZOSTER VACCINE (1 of 2) 2007 INFLUENZA VACCINE (#1) 2024 COLORECTAL SCREENING 04/03/2029 04/03/2019 Colorectal Cancer Screening 04/03/2029 RSV VACCINE (60+ or ) (1 - 1-dose 75+ series) 2032 Insurance [facility] L2 CHOICE [employer] PPO MCR Care Teams Hand Chain Maker Relationship Specialty Start Date End Date Crescencio Araiza MD [address] [place] [address] PCP - General Family Practice 06/19/17
--- OUTSIDE RECORDS SUMMARY | 2025-02-11 11:34 | XMS_ITS | Data Portability ---
Author Organization [facility] ([facility] Address [address] [facility] [address] [place] [address] Care Team Providers Care Check Weigher Name Role Phone ALISHA LEIGH Referring Provider Assessment No assessment recorded. Plan of Treatment Reminders Order Date Submit Date Provider Last Modified By Organization Details Last Modified Time Details Appointments None record ed. Lab None record ed. Referral None record ed. Procedures None record ed. Surgeries None record ed. Imaging None record ed. Medication Orders None record ed. Patient TargetsNo targets recorded. Patient InstructionsNo instructions recorded. Reason for Referral None Reported. Procedures Surgical History Date Name Laterality Status Provider Name and Address Organization Details Recorded Time 03/15/2023 Sleep Study completed Baljinder Toryjose enrique [facility] [place]18[place]23 14:56:41 Imaging Results None recorded. Procedure Notes None recorded. Medical Equipment None Reported. Medications Name Sig Start Date Stop Date Status Note LastModified by Organization Details LastModified Time clonazepam 1 mg tablet TAKE 1 TO 2 TABLETS BY MOUTH ONCE DAILY AT BEDTIME. PT WILL TRY TO TITRATE DOWN FOLLOW UP EVERY 4 MONTHS. active Not Available Not Available No t Available sildenafil 25 mg tablet TAKE 1 TABLET BY MOUTH ONCE DAILY NEEDED FOR SEXUAL ACTIVITY . TAKE 30 MINUTES TO 4 HOURS BEFORE ACTIVITY . active Not Available Not Available No t Available metronidazole 0.75 % topical gel APPLY TO FACE EVERY DAY AT BEDTIME active Not Available Not Available No t Available metoprolol tartrate 25 mg tablet TAKE 1 TABLET BY MOUTH TWICE DAILY active Not Available Not Available No t Available Vitals Date Recorded Body height Body mass index (BMI) Body weight Provider Name and Address Organization Details Last Updated DateTime 03/15/2023 185.42 cm 23.7 kg/m2 85066.63 g [facility] [address] [facility] [address], [place], [address], [place] - [facility] 03/15/2023 13:31:13 Social History None recorded. Functional Status None recorded. Mental Status None recorded. Family History Nothing Reported. Medical History No medical history recorded. Past Encounters Encounter ID Performer Location Encounter Start Date Encounter Closed Date Diagnosis/Indication Diagnosis SNOMED-CT Code Diagnosis ICD10 Code Diagnosis Note [id number] Murali Seth MD, F.C.C.P. [facility] (11) [address] [place] [address] [address] [place] [phone] 03/15/2023 11:48:29 03/18/2023 14:51:18 Obstructive sleep apnea of adult 9143771554 103 G47.33 Health Concerns Section Related Observation LastModified by Organization Detai ls LastModified Time None Recorded Concern Status LastModified by Organization Details LastModified Time None Recorded Advance Directives Directive None Recorded Payers Encounter Date Sequence Insurance Name Policy Number Policy Whyte Covered Member ID Whyte Member ID Guarantor Name 03/15/2023 1 [employer] (MEDICARE REPLACEMENT PPO) [id number] Toney Dobbins [id number] Toney Dobbins Notes Date Note Type Note Provider Name and Address Organization Details Recorded Time 03/15/2023 text/html HST SetupReporte d [email or web address] set upDemonstrated to patient how to set up Home Sleep Test Device. The patient was able to return demonstration with out difficulty.; The patient is returning the device the following morning. Murali Seth MD, F.C.C.P. [address] [place] [address] [address], [place], [address], [facility] [place] [facility] 03/26/2023 11:15:55
--- OUTSIDE RECORDS SUMMARY | 2025-02-11 11:34 | XMS_ITS | Clinical Summary ---
Author Organization [facility] [place] [address] Address [address] [place] [address] Care Team Providers Care Warehouse Team Leader Name Role Phone Crescencio Araiza MD Primary Care Provider [phone] Allergies No known active allergies Medications metoprolol [...] 4 capsules by mouth every morning Active [id number] -FISH OIL-COQ10 ORALIndications :supplement Take 2 capsules [...] metoprolol as per Cardiology. 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 Gender Identity Not on file Sexual Orientation Not on file Obstetrics History Last Filed Vital Signs Vital Sign Reading Time Taken Comments Blood Pressure 130/80 10/29/2024 10:03 AM SCREENPLAY WRITER Pulse 85 10/29/2024 10:03 AM SCREENPLAY WRITER Temperature 36.5 C (97.7 F) 07/14/2023 8:30 AM CDT Respiratory Rate 18 07/14/2023 8:30 AM CDT Oxygen Saturation 98% 10/29/2024 10:03 AM SCREENPLAY WRITER Inhaled Oxygen Concentration - - Weight 86.6 kg (191 lb) 10/29/2024 10:03 AM SCREENPLAY WRITER Height 185.4 cm (6' 1 ) 10/31/2023 2:33 PM SCREENPLAY WRITER Body Mass Index 25.2 10/31/2023 2:33 PM SCREENPLAY WRITER Plan of Treatment Health Maintenance Due Date Last Done Comments Colon Cancer Screening-Colonoscopy 1957 Depression Screening 1957 Hepatitis C Screening 1957 Prostate Cancer Screening-PSA 1957 Hepatitis B Screening 1975 Pneumococcal vaccine 65+ (1 of 1 - PCV) 2007 Well Visit 65+ 2022 Covid-19 Vaccine (4 - 2023- season) 2024 10/24/2021, 03/03/2021, 02/10/2021 Influenza Vaccine (#1) 2024 , 07/27/2021, 08/24/2020 Fall Risk Assessment 07/14/2024 07/14/2023 DTaP/Tdap/Td Vaccine (2 - Td or Tdap) 06/14/203101/2021 Zoster Vaccine Completed 10/25/2020, 08/24/2020 Abdominal Aortic Aneurysm (A AA) Screen Completed 06/13/2024 Medical Devices Implanted Type Area Stitchdowns Toe Former Device Identifier Shelf Expiration Date Model / Serial / Lot [employer] Vascade Mvp 6-12fr Venous Closure [id number] - [id number] - [id number] Implanted:Qty : 1 on 07/13/2023 by Radha Osorio MD at [facility] Collagen Right: Femoral Vein [employer] 06/16/2025 800-612C- 10U / [id number] 10B / [id number] 10B [employer] Vascade Mvp 6-12fr Venous Closure [id number] - [id number] - [id number] Implanted:Qty : 1 on 07/13/2023 by Radha Osorio MD at [facility] Collagen Right: Femoral Vein [employer] 06/16/2025 800-612C- 10U / [id number] 10B / [id number] 10B [employer] Vascade Mvp 6-12fr Venous Closure [id number] - [id number] - [id number] Implanted:Qty : 1 on 07/13/2023 by Radha Osorio MD at [facility] Collagen Left: Femoral Vein [employer] 06/16/2025 [id number] 10U / [id number] 10B / [id number] Insurance [facility] Advance Directives For more information, please contact: [phone] * Full Code (Latest Code Status on File) Date Activated Date Inactivated Comments 07/13/2023 3:18 PM 07/14/2023 2:55 PM Care Teams Warehouse Team Leader Relationship Specialty Start Date End Date Crescencio Araiza MD PCP - General Family Medicine 01/11/23
== END 2025-02-11 09:59 | disposition home or self-care (01) ==
PROVIDERS: PCP Family Medicine; Visit Provider Nurse Practitioner Adult Health
DX: M47.812 Spondylosis without myelopathy or radiculopathy, cervical region (principal); R20.0 Anesthesia of skin
CPT/HCPCS: 72040; 73630